=== PATIENT | female | born 1995 | race Caucasian/White ===

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

== ENCOUNTER → 2017-08-21 | Outpatient (CLI) | payer MEDICAID ==
[~2017-08-21] MED LIST: BROMFED DM COU118 ML PO; MEDROL 4MG. DOSE4 MG PO; ZITHROMAX Z PA250 MG PO
[2017-08-21 15:32] LABS: HEMOGLOBIN 15.5 g/dL (12.2-16.2); LYMPH # 4.3 K/mm3 (0.7-4.5); LYMPH % 42.2 % (10-50.0)
== END ==
LOC: LAB 14:52
PROVIDERS: Obstetrics & Gynecology
DX: N92.0 Excessive and frequent menstruation with regular cycle (principal)

== ENCOUNTER → 2017-08-26 | Outpatient (CLI) | payer MEDICAID ==
--- NOTE | 2017-08-26 16:16 | RADIOLOGY REPORT PS360 ---
US PELVIS-TRANSVAGINAL ONLY HISTORY: FREQUENT MENSTRUATION ORDERING PHYSICIAN: Sin Jimenez MD PATIENT AGE: 21 years COMPARISON: None FINDINGS: UTERUS: The uterus measures 6 x 3 x 3 cm. Combined endometrial thickness is 8 mm. No obvious uterine mass RIGHT OVARY: 2.5 x 2 cm and contains small follicles LEFT OVARY: 3 x 2.3 cm with small follicles. CUL-DE-SAC FLUID: No cul-de-sac fluid apparent OTHER FINDINGS: None IMPRESSION: Multiple bilateral small ovarian follicles otherwise negative pelvic ultrasound
== END ==
LOC: RAD 15:23
DX: N92.0 Excessive and frequent menstruation with regular cycle (principal)